=== PATIENT | male | born 1990 | race Caucasian/White ===

== ENCOUNTER 2018-09-19 18:22 | Emergency (ER) | payer MEDICAID, OTHER ==
[2018-09-19] MEDS ORDERED: NS 1,000 ML IV ONE (18:59)
[2018-09-19 19:09] LABS: PLATELET COUNT 302 10^3/uL (150-400)
[2018-09-19] MEDS ORDERED: IOPAMIDOL (ISOVUE-300) 100 ML BTL ONE (19:18)
[2018-09-19] MEDS ORDERED: DIAZEPAM 5 MG TAB PO ONE (20:09)
--- NOTE | 2018-09-19 20:29 | EDPHY ---
HPI/HX/ROS/PE/MDM Narrative: CLINICAL IMPRESSION: Acute uncomplicated diverticulitis ASSESSMENT/PLAN: 28-year-old male presents to the emergency department with approximately 24 hr of left lower quadrant pain. Patient has history of significant diverticulitis requiring partial colectomy when he was 18 years old secondary to intra- abdominal abscess. Patient does not regularly follow with his lab asst who is at [facility]. He has however had 2 normal colonoscopies. No associated fever, chills, nausea, vomiting, bloody stools, diarrhea, scrotal pain, testicular swelling or dysuria. Patient has a mild leukocytosis of 10 with otherwise normal renal function and electrolytes. Vital signs stable, afebrile here. CT abdomen pelvis with contrast reveals uncomplicated diverticulitis of the descending colon. Patient's previous surgery was at the transverse colon near the hepatic flexure. I have recommended outpatient treatment with Flagyl and Cipro. Patient agrees to received prescriptions although declined initial dose in the ED and prefers to follow up with his acupuncture provider tomorrow. I emphasized the importance of PCP and GI follow-up. Warning signs return to ED sooner outlined and discharge. DIFFERENTIAL DX: Abdominal pain includes but not limited to acute appendicitis, diverticulitis, cholecystitis, pancreatitis, SBO, gastroenteritis, constipation ED PROCEDURES: See lab and/or imaging results below ED COURSE: 8:00 p.m.: CT results discussed with Radiology. Patient has evidence of diverticulitis in the left lower quadrant. No micro perforation or free air identified. Mild leukocytosis of 10. Discussed results with patient. Recommend outpatient antibiotics and PCP and GI follow-up. Patient has refused antibiotic dosing tonight but will take a prescription and fill tomorrow. He prefers to try treatment with his platform man 1st. CHIEF COMPLAINT: Left lower quadrant abdominal pain HPI: 28-year-old male presents to the emergency department with his father for evaluation of left lower quadrant pain that initially began 3 weeks ago, completely resolved, and then began bothering him again last night. No associated nausea, vomiting, diarrhea, bloody stools, flank pain, dysuria, hematuria, scrotal or testicular pain. No heavy lifting or history of inguinal hernia. Patient reports he did have diverticulitis complicated by perforations an abscess at age 18 requiring partial colectomy of the transverse colon. His primary lab asst is at [facility] but he does not see him regularly. He has had 2 normal colonoscopies in the past. He admits that he has frequent stress and anxiety in that this typically presents with abdominal symptoms. He is very resistant to taking antibiotics because he states they "stop him up". No reported fever or chills. He prefers to approach his medical care with a homeopathic approach and is planning on visiting his platform man tomorrow. PAST MEDICAL HISTORY: Diverticulitis requiring partial colectomy of the transverse colon at age 18, significant situational anxiety See nurse/triage notes for additional history if applicable Pertinent Past Surgical History: Partial colectomy of transverse colon Family History: None reported Social History: Lives alone, employed, nonsmoker REVIEW OF SYSTEMS: All other systems negative Constitutional: No fever, no chills, appetite change. Cardiovascular: No chest pain, no palpitations. Respiratory: No cough, no shortness of breath. Gastrointestinal: Positive for abdominal pain, no vomiting, no diarrhea. Genitourinary: No hematuria, dysuria, flank pain, pelvic pain Skin: No rashes, color change. Neurological: No headache, dizziness, weakness. PHYSICAL EXAM: General Appearance: Alert, oriented, appropriate, cooperative, NAD, well hydrated, non-toxic appearing, VSS, no hypoxia. HEENT: Oropharynx clear is no erythema or exudates, no tonsillar hypertrophy or asymmetry. Dentition without abnormality. Neck: Supple, nontender, no lymphadenopathy, no midline pain, FROM, no meningismus. Respiratory: There are no retractions, lungs are clear to auscultation. Cardiac: Regular rate and rhythm, no murmurs or gallops. Gastrointestinal: [Abdomen is soft, left lower quadrant tenderness, no rigidity , guarding or focal peritoneal findings, bowel sounds normal, no masses/hernia Neurological: [ Alert and oriented x 3 Skin: Warm, dry, no rashes, no nodules on palpation. MEDICAL DECISION MAKING: Patient was seen independently. Secondary supervising physician at time of evaluation was Dr. Givens. Diagnosis: Diverticulitis without perforation or abscess. New, requires workup Summary: See Assessment and Plan for summary of ED visit Clinical lab tests: ordered / reviewed. Independent visualization of images, tracing, or specimens: Yes. Decision to obtain medical records or history from someone other than the patient: Patient's father Review / Summarize previous medical records: None available Discussed patient with another provider: Radiology Patient Progress: Improved, stable. - Data Points Imaging Results: Imaging Impressions Abdomen CT 09/19/18 19:14 Impression: 1. Acute diverticulitis in the descending colon without evidence of free air or abscess formation. Brayden Lincoln was notified of these findings by telephone at 8:07 PM on 2017 Laboratory Results: Laboratory Results 09/19/18 19:00 09/19/18 19:00 09/19/18 09/19/18 19:00 19:00 WBC 10.50 10^3/uL H 10^3/uL (3.80-9.50) RBC 5.18 10^6/uL 10^6/uL (4.40-6.38) Hgb 15.7 g/dL g/dL (13.7-17.5) Hct 46.3 % % (40.0-51.0) MCV 89.4 fL fL (81.5-99.8) MCH 30.3 pg pg (27.9-34.1) MCHC 33.9 g/dL g/dL (32.4-36.7) RDW 11.9 % % (11.5-15.2) Plt Count 302 10^3/uL 10^3/uL (150-400) MPV 9.4 fL fL (8.7-11.7) Neut % (Auto) 55.2 % % (39.3-74.2) Lymph % (Auto) 29.6 % % (15.0-45.0) [place] % (Auto) 10.3 % % (4.5-13.0) Eos % (Auto) 4.2 % % (0.6-7.6) Baso % (Auto) 0.5 % % (0.3-1.7) Nucleat RBC Rel Count 0.0 % % (0.0-0.2) Absolute Neuts (auto) 5.80 10^3/uL 10^3/uL (1.70-6.50) Absolute Lymphs (auto) 3.11 10^3/uL H 10^3/uL (1.00-3.00) Absolute Monos (auto) 1.08 10^3/uL H 10^3/uL (0.30-0.80) Absolute Eos (auto) 0.44 10^3/uL H 10^3/uL (0.03-0.40) Absolute Basos (auto) 0.05 10^3/uL 10^3/uL (0.02-0.10) Absolute Nucleated RBC 0.00 10^3/uL 10^3/uL (0-0.01) Immature Gran % 0.2 % % (0.0-1.1) Immature Gran # 0.02 10^3/uL 10^3/uL (0.00-0.10) Sodium 138 mEq/L mEq/L (135-145) Potassium 3.8 mEq/L mEq/L (3.5-5.2) Chloride 101 mEq/L mEq/L (97-110) Carbon Dioxide 28 mEq/l mEq/l (22-31) Anion Gap 9 mEq/L mEq/L (6-14) BUN 16 mg/dL mg/dL (7-23) Creatinine 1.1 mg/dL mg/dL (0.7-1.3) Estimated GFR > 60 Glucose 116 mg/dL H mg/dL (70-100) Calcium 9.9 mg/dL mg/dL (8.5-10.4) Medications Given: Discontinued Medications Sodium Chloride (Ns) 1,000 mls @ 0 mls/hr IV EDNOW ONE; Wide Open PRN Reason: Protocol Stop: 09/19/18 19:00 Last Admin: 09/19/18 19:08 Dose: 1,000 mls General Time Seen by Provider: 09/19/18 18:53 Initial Vital Signs: Initial Vital Signs Temperature (C) 37.1 C 09/19/18 18:34 Heart Rate 89 09/19/18 18:34 Respiratory Rate 16 09/19/18 18:34 Blood Pressure 102/79 09/19/18 18:34 O2 Sat (%) 95 09/19/18 18:34 O2 Delivery Mode Room Air Allergies/Adverse Reactions: No Known Allergies Allergy (Unverified 09/19/18 18:34) Home Medications: Medication Instructions Recorded LaMICtal 03/15/16 Ciprofloxacin [Cipro 500 mg] 500 mg PO BID #14 tab 09/19/18 metroNIDAZOLE [Flagyl 500 mg (*)] 500 mg PO BID #14 tab 09/19/18 Departure - Departure Disposition: Home, Routine, Self-Care Clinical Impression: Diverticulitis large intestine Condition: Good Instructions: Diverticulitis (ED) Additional Instructions: DISCHARGE INSTRUCTIONS FROM YOUR DOCTOR Thank you for visiting our emergency department today. Please keep in mind that discharge from the emergency department does not mean that there is nothing wrong - it simply means that we have not identified an emergency condition that requires further evaluation or treatment in the hospital. You should always plan to follow up with primary care for re-evaluation of your condition in the next 2-3 days. If you have been referred to a specialist, please call as soon as possible (today or tomorrow) to schedule your follow up appointment at the appropriate time. CT SCAN IN THE EMERGENCY DEPARTMENT SHOWED LEFT LOWER QUADRANT DIVERTICULITIS WITHOUT PERFORATION OR ABSCESS. YOU DO HAVE A SMALL BUMP IN YOUR INFECTION FIGHTING COUNT. WE RECOMMEND TAKING ANTIBIOTICS AND FOLLOWING UP WITH PRIMARY CARE AND GI. PLEASE SEE YOUR GI PROVIDER AT [facility]. IF YOU DO NOT HAVE A LOCAL PRIMARY CARE PROVIDER A REFERRAL WAS GIVEN. PLEASE RETURN TO THE EMERGENCY DEPARTMENT IMMEDIATELY FOR WORSENING ABDOMINAL PAIN, FEVER, CHILLS , ABDOMINAL DISTENTION, VOMITING, INABILITY TO EAT, BLOODY STOOLS, OR ANY OTHER CONCERNS. People present with illnesses and injuries in different ways, and it is always possible that we have missed something. You may always return for re-evaluation if symptoms worsen or if they are not improving or if you develop new/different symptoms. Again, thank you for choosing our emergency department. We hope that you feel better. Referrals: NONE *PRIMARY CARE P,. [Primary Care Provider] - As per Instructions Sanam Dubois MD [Medical Doctor] - As per Instructions Prescriptions: Ciprofloxacin [Cipro 500 mg] 500 mg PO BID #14 tab metroNIDAZOLE [Flagyl 500 mg (*)] 500 mg PO BID #14 tab
[2018-09-19] MEDS ORDERED: metroNIDAZOLE 500 MG TAB PO ONE (20:45)
[2018-09-19] MEDS ORDERED: CIPROFLOXACIN 500 MG TAB PO ONE (20:45)
[2018-09-19 20:50] VITALS: BP 108/57
== END 2018-09-19 20:51 | disposition home or self-care (01) ==
DX: K57.32 Diverticulitis of large intestine without perforation or abscess without bleeding (principal); E86.9 Volume depletion, unspecified; Z90.49 Acquired absence of other specified parts of digestive tract
CPT/HCPCS: Q9967

== ENCOUNTER 2018-09-22 21:54 | Emergency (ER) | payer MEDICAID ==
[2018-09-22] MEDS ORDERED: AMOXICILLIN/CLAVULANATE POT 875/125 MG TAB PO ONE (22:34)
[2018-09-22] MEDS ORDERED: hydrOXYzine HCL 25 MG TAB PO ONE (22:37)
--- NOTE | 2018-09-22 22:38 | EDPHY ---
H & P Time Seen by Provider: 09/22/18 22:20 HPI/ROS: CHIEF COMPLAINT: The frequent panic attacks and possible complication for medication HISTORY OF PRESENT ILLNESS: Patient is 28-year-old male here with complaint of increased frequency of panic attacks after starting Cipro and Flagyl for diverticulitis. He he also reports palpitations and chest pain the last 2 days. He has no prior history of cardiovascular disease. Does report 2 years ago seen emergency room for chest pain and told the had an abnormal EKG and it looked like he was having a heart attack but ultimately he was sent home from the emergency room until that he was not in fact having a heart attack. He has never seen a technical manager chemical plant or had any further workup with regards to his heart. He has had no recent illness or fever. He has no family history of congenital cardiac disease. Has a 1st history of bipolar and frequent panic attacks. Denies any fever or worsening abdominal pain. REVIEW OF SYSTEMS: Constitutional: No fever, no chills. Eyes: No discharge. ENT: No sore throat. Cardiovascular: + chest pain, no palpitations. Respiratory: No cough, no shortness of breath. Gastrointestinal: No abdominal pain, no vomiting. Genitourinary: No hematuria. Musculoskeletal: No back pain. Skin: No rashes. Neurological: No headache. Smoking Status: Never smoked Physical Exam: General Appearance: Alert and no distress. ENT: normal dentition. No tonsillar exudate or swelling. Eyes: Pupils equal and round no injection. Respiratory: Chest is nontender, lungs are clear to auscultation. Cardiac: regular rate and rhythm. No lower extremity edema Gastrointestinal: Abdomen is soft and nontender, no masses, bowel sounds normal. Musculoskeletal: Neck is supple and nontender. Extremities have full range of motion and are nontender without deformity Skin: No rashes or lesions. Neuro: Cranial nerves grossly intact. Ambulatory. Constitutional: Initial Vital Signs Temperature (C) 36.8 C 09/22/18 21:57 Heart Rate 92 09/22/18 21:57 Respiratory Rate 20 09/22/18 21:57 Blood Pressure 113/85 H 09/22/18 21:57 O2 Sat (%) 96 09/22/18 21:57 O2 Delivery Mode Room Air Allergies/Adverse Reactions: No Known Allergies Allergy (Unverified 09/22/18 21:57) Home Medications: Medication Instructions Recorded LaMICtal 03/15/16 Ciprofloxacin [Cipro 500 mg] 500 mg PO BID #14 tab 09/19/18 metroNIDAZOLE [Flagyl 500 mg (*)] 500 mg PO BID #14 tab 09/19/18 Amoxicillin/Clavulanate Pot 875 mg PO BID #14 tab 09/23/18 [Augmentin 875 MG TAB (*)] Medical Decision Making - Diagnostics Imaging Results: No cardiomegaly, pleural effusion, infiltrate seen in the x-ray per my read. ED Course/Re-evaluation: 20-year-old male here complaining of increased frequency of panic attacks since starting Cipro and Flagyl. I discussed his that could be reaction to Cipro as it has been known to cause multiple unusual side effects. EKG ordered based on his sensation of palpitations and associated chest pain while having panic attacks. Did show diffuse ST segment elevation with a tracer reading of possible pericarditis. Given the patient's history of prior EKG showing"heart attack"and his current EKG with ST elevation this is likely repolarization changes that are normal for the patient. That said will treat him with anti- inflammatories treat for possible pericarditis and have him follow up with a technical manager chemical plant for 2nd opinion on his EKG. Additionally he was given outpatient follow-up with a primary care physician. Will switch his antibiotic to Augmentin. He was given the 1st dose the emergency room. - Data Points Laboratory Results: 09/22/18 22:56 POC Troponin I 0.00 ng/mL ng/mL (0.00-0.08) Medications Given: Discontinued Medications Amoxicillin/Clavulanate Potassium (Augmentin 875mg) 875 mg PO EDNOW ONE PRN Reason: Protocol Stop: 09/22/18 22:35 Last Admin: 09/22/18 22:38 Dose: 875 mg Hydroxyzine HCl (Hydroxyzine Hcl) 25 mg PO ONCE ONE Stop: 09/22/18 22:38 Last Admin: 09/22/18 22:56 Dose: 25 mg Ibuprofen (Motrin) 600 mg PO EDNOW ONE Stop: 09/23/18 00:25 Last Admin: 09/23/18 00:25 Dose: 600 mg Ketorolac Tromethamine (Toradol) 15 mg IVP EDNOW ONE Stop: 09/23/18 00:18 Last Admin: 09/23/18 00:23 Dose: Not Given Point of Care Test Results: Chemistry 09/22/18 22:56 POC Troponin I 0.00 ng/mL ng/mL (0.00-0.08) Departure - Departure Disposition: Home, Routine, Self-Care Clinical Impression: Panic attacks, Abnormal EKG, Diverticulitis, Medication reaction Instructions: Amoxicillin/Clavulanate Potassium (By mouth) Additional Instructions: If symptoms are most consistent with anxiety and panic attacks that become more frequent with the use of the antibiotics. Please switch to Augmentin. Her EKG is abnormal so I would like you to call Cardiology to follow up with them. Take 600 mg of Motrin 3 times a day for the next 5 days and follow up with Cardiology. Also please establish with the primary care physician at the number given to this evening. Referrals: NONE *PRIMARY CARE P,. [Primary Care Provider] - As per Instructions Cari Briggs MD [Medical Doctor] - As per Instructions Too Duran MD [Medical Doctor] - As per Instructions Prescriptions: Amoxicillin/Clavulanate Pot [Augmentin 875 MG TAB (*)] 875 mg PO BID #14 tab
[2018-09-23] MEDS: KETOROLAC 15 MG/1 ML SDV IVP ONE ×2 (00:19→00:23)
[2018-09-23 00:23] VITALS: BP 110/66
[2018-09-23] MEDS ORDERED: IBUPROFEN 600 MG TAB PO ONE (00:24)
--- NOTE | 2018-09-29 09:30 | CPEKG ---
Test Reason : OPEN Blood Pressure : / mmHG Vent. Rate : 080 BPM Atrial Rate : 079 BPM P-R Int : 157 ms QRS Dur : 097 ms QT Int : 361 ms P-R-T Axes : 051 071 067 degrees QTc Int : 417 ms Sinus rhythm Confirmed by Sagar Abbott ([id number]) on 09/29/2018 9:29:42 AM Referred By: Confirmed By:Sagar Abbott
== END 2018-09-23 01:16 | disposition home or self-care (01) ==
DX: F41.0 Panic disorder [episodic paroxysmal anxiety] (principal); R94.31 Abnormal electrocardiogram [ECG] [EKG]; T36.8X5A Adverse effect of other systemic antibiotics, initial encounter; K57.92 Diverticulitis of intestine, part unspecified, without perforation or abscess without bleeding
CPT/HCPCS: 84484-PO; 96374; J1885